=== PATIENT | male | born 1990 | race Caucasian/White ===

== ENCOUNTER 2016-11-21 16:05 | Emergency (ER) | payer OTHER ==
[~2016-11-21] VITALS: Ht 170.2 cm; Wt 61.2 kg
[2016-11-21 15:59] VITALS: BP 112/69
[~2016-11-21 16:05] MED LIST: NEXIUM40 MG ORAL
[2016-11-21] MEDS ORDERED: PredniSONE 20mg tab ORAL ONE (16:15)
--- NOTE | 2016-11-21 16:16 | Emergency Room Report ---
History of Present Illness General Chief Complaint: General Complaint Source: Patient Present Illness HPI 26 YO M [place] from gym with acute episode of watery eyes, throat tightness, diffuse rash and stomach discomfort. Occurred while running on treadmill at gym. Denies chest pain, SOB, headache. Occurred hour+ after eating apple preceeded by eggs/newby. Known allergy to pears. Never had allergic reaction before. Didnt take any meds at home. Not given any meds by EMS. Symptoms resolved now except for rash. Allergies: Coded Allergies: No Known Allergies (Unverified , 11/21/16) Patient History Past Medical History: none Past Surgical History: none Pertinent Family History: none Social History: Denies: alcohol use, drug use, smoking Immunizations: UTD Reviewed Nursing Documentation: PMH: Agreed, PSxH: Agreed Nursing Documentation-PMH Past Medical History: No History, Except For Hx Gastrointestinal Problems: Yes - GERD Review of Systems All Other Systems: negative except mentioned in HPI Physical Exam Vital Signs Date Time Temp Pulse Resp B/P Pulse Ox O2 Delivery O2 Flow Rate FiO2 11/21/16 15:47 113 16 111/87 99 Room Air 11/21/16 15:59 98.4 Sp02 EP Interpretation: reviewed, normal General Appearance: normal inspection, well appearing, no apparent distress, alert, GCS 15, non-toxic Head: normocephalic, atraumatic Eyes: bilateral eye EOMI, bilateral eye PERRL ENT: normal ENT inspection, hearing grossly normal, normal pharynx, no angioedema, normal voice, TMs + canals normal, uvula midline Neck: normal inspection, full range of motion, supple, thyroid normal, no meningismus, no bony tend, no carotid bruits, supple/symm/no masses Respiratory: normal inspection, lungs clear, normal breath sounds, no rhonchi, no respiratory distress, no retraction, no accessory muscle use, no wheezing Cardiovascular #1: normal peripheral pulses, regular rate, rhythm, no edema Gastrointestinal: normal inspection, normal bowel sounds, non tender, soft, no guarding, no hernia Genitourinary: no CVA tenderness Musculoskeletal: normal inspection, back normal, normal range of motion, Lucero' s Sign negative Neurologic: normal inspection, alert, oriented x3, responsive, engineer assistant III-XII nml as tested, motor strength/tone normal, speech normal Psychiatric: normal inspection, judgement/insight normal, mood/affect normal Skin: normal inspection, normal color, other - diffuse urticaria to bilateral upper extremities, torso, back Lymphatic: normal inspection Medical Decision Making Diagnostic Impression: Primary Impression: Anaphylaxis Qualified Codes: T78.2XXA - Anaphylactic shock, unspecified, initial encounter ER Course Anaphylaxis/toid reaction given involvement of multiple organ systems VSS. Afebrile now. Airway patent Symptoms resolving without intervention PO benadryl, prednisone, ranitidine given in ED Observed for 1 hour in ED - no additional symptoms or worsening or rash Rx Prednisone, Benadryl and Epi pen PMD followup for allergy testing Advised to avoid apples in future Last Vital Signs Date Time Temp Pulse Resp B/P Pulse Ox O2 Delivery O2 Flow Rate FiO2 11/21/16 15:59 98.4 63 22 112/69 100 Room Air Status: improved Disposition: HOME, SELF-CARE Scripts Epinephrine (Epipen 2-Russ) 0.3 Mg/0.3 Ml Auto.injct 0.3 MG IM ONCE for shock for 1 Day, #2 EA Prov: JUNIOR HOSKINS M.D. 11/21/16 Diphenhydramine HCl (Benadryl) 25 Mg Capsule 25 MG PO BID for itch, rash for 7 Days, #30 CAP Prov: JUNIOR HOSKINS M.D. 11/21/16 Prednisone* (PREDNISONE*) 20 Mg Tablet 40 MG ORAL DAILY for 3 Days, #3 TAB Prov: JUNIOR HOSKINS M.D. 11/21/16 JUNIOR HOSKINS M.D. Nov 21, 2016 16:16
[2016-11-21] MEDS ORDERED: EPIPEN 2-P0.3 MG/0.3 IM (16:19)
[2016-11-21] MEDS ORDERED: BENADRYL25 M3 PO (16:19)
[2016-11-21] MEDS ORDERED: PREDNISONE20 MG ORAL (16:19)
[2016-11-21 17:06] VITALS: BP 109/72
[2016-11-21 17:10] VITALS: BP 109/72
== END 2016-11-21 17:10 | disposition home or self-care (01) ==
LOC: EDBD 16:05 → EMR 16:33
DX: T78.2XXA Anaphylactic shock, unspecified, initial encounter (principal); X58.XXXA Exposure to other specified factors, initial encounter; Z87.19 Personal history of other diseases of the digestive system
CPT/HCPCS: 99284